=== PATIENT | female | born 1995 ===

== ENCOUNTER 2022-10-09 07:46 | Inpatient (IN) | payer OTHER ==
[~2022-10-09] VITALS: Ht 152.4 cm; Wt 3.6 kg
[2022-10-09] MEDS ORDERED: PRENATAL + DHA1 EAC1 PO (10:33)
== END 2022-10-12 14:32 | disposition home or self-care (01) | DRG 788 ==
LOC: LDR 07:46 → OB/GYN 07:46
PROVIDERS: ADMIT Specialist; ATTEND Specialist
PROC: 4A1HXCZ Monitoring of Products of Conception, Cardiac Rate, External Approach (ICD-10-PCS; 2022-10-09)
PROC: 10D00Z1 Extraction of Products of Conception, Low, Open Approach (ICD-10-PCS; principal; 2022-10-09 19:00)
DX: O62.1 Secondary uterine inertia (principal); Z3A.39 39 weeks gestation of pregnancy; Z37.0 Single live birth; Z20.822 Contact with and (suspected) exposure to COVID-19

== ENCOUNTER 2024-04-23 07:45 | Inpatient (IN) | payer OTHER ==
[~2024-04-23] VITALS: Ht 152.4 cm; Wt 101.6 kg
[~2024-04-23 07:45] MED LIST: PRENATAL + DHA1 EAC1 PO
[2024-04-23 09:43] LABS: URINE APPEARANCE Clear; URINE BILIRRUBIN Negative (NEGATIVE); URINE BLOOD Negative; URINE COLOR Yellow; URINE GLUCOSE Negative (NEGATIVE); URINE LEUKOCYTE Trace; URINE NITRATE Negative; URINE PROTEIN Negative (NEGATIVE); URINE UROBILINOGEN 0.2 E.U./dl
[2024-04-23 09:47] LABS: URINE BACTERIA 1079.7 uL (0.0-1933); URINE EPITHELIAL CELLS 45.9 uL (0.0-38.8); URINE RBC 5.4 uL (0.0-20.8); URINE WBC 25.6 uL (0.0-23.2)
[2024-04-23 10:05] LABS: INR < 0.93; PROTHROMBIN TIME 9.7 SECONDS (9.0-11.5)
[2024-04-23 10:16] LABS: HEMATOCRIT 34.8 % (36.0-45.00); MEAN CELL VOLUME 85.9 fL (80.00-100.00); MEAN CORPUSCULAR HEMOGLOBIN 29.7 pg (27.00-32.0); MEAN CORPUSCULAR HGB CONC 34.6 g/dl (32.0-36.0); PLATELET COUNT 136 K/uL (150-450); RED BLOOD COUNT 4.04 M/uL (4.00-6.00); RED CELL DISTRIBUTION WIDTH 16.4 % (11.5-14.5)
[2024-04-23 10:34] LABS: ALBUMIN 2.3 gm/dL (3.4-5.0); BILIRUBIN TOTAL 0.54 mg/dL (0.3-1.2); CALCIUM 8.5 mg/dL (8.5-10.1); CREATININE SERUM 0.4 mg/dL (0.55-1.02); GFR 187.41; GLOBULINA 4.2 G/DL (2.4-3.5); TOTAL PROTEIN 6.5 gm/dL (6.4-8.2)
[2024-04-28] MEDS ORDERED: KETOROLAC TROMETHAMINE 60 MG VIAL IM ONE (17:30)
[2024-04-28] MEDS ORDERED: MEPERIDINE HCL/PF 50 MG/ML VIAL IV SCH (17:30)
[2024-04-28] MEDS ORDERED: OXYTOCIN 10 UNITS/ML VIAL IV ONE (19:45)
[2024-04-28] MEDS ORDERED: ERYTHROMYCIN BASE 1 GM TUBE OP ONE (19:45)
[2024-04-28] MEDS ORDERED: CEFAZOLIN SODIUM 1,000 MG VIAL IV ONE (19:45)
[2024-04-28] MEDS ORDERED: PROMETHAZINE HCL 25 MG/ML AMPUL IV SCH (21:00)
[2024-04-28 21:16] LABS: ABG PH 7.264 (7.35-7.45); ABG PO2 18.2 mmHg (80-100); ABG pCO2 52.7 mmHg (35-45); BASE EXCESS -4.3 mmol/l; BICARBONATE 23.4 mmol/l (23-25)
[2024-04-28 21:39] LABS: HEMATOCRIT 37.1 % (36.0-45.00); HEMOGLOBIN 12.7 g/dL (12.0-15.00); MEAN CELL VOLUME 86.4 fL (80.00-100.00); MEAN CORPUSCULAR HEMOGLOBIN 29.5 pg (27.00-32.0); MEAN CORPUSCULAR HGB CONC 34.2 g/dl (32.0-36.0); PLATELET COUNT 148 K/uL (150-450); RED CELL DISTRIBUTION WIDTH 16.3 % (11.5-14.5)
[2024-04-29] MEDS ORDERED: OxyCODONE HCL/APAP UD (PERCOCET) PO SCH (09:00)
[2024-04-29] MEDS ORDERED: DOCUSATE CALCIUM 240 MG CAPSULE PO SCH (09:00)
[2024-04-29] MEDS ORDERED: SIMETHICONE 125 MG CAPSULE PO SCH (09:00)
[2024-04-30] MEDS ORDERED: MINERAL OIL 30 ML BLIST.PACK PO NR (14:00)
[2024-04-30] MEDS ORDERED: MAGNESIUM HYDROXIDE 30 ML BLIST.PACK PO NR (14:00)
== END 2024-05-01 12:56 | disposition home or self-care (01) | DRG 785 ==
LOC: O/R 04-28 06:45 → OB/GYN 04-28 07:45
PROVIDERS: ADMIT Specialist; ATTEND Specialist
PROC: 0UB70ZZ Excision of Bilateral Fallopian Tubes, Open Approach (ICD-10-PCS; 2024-04-28)
PROC: 4A1HXCZ Monitoring of Products of Conception, Cardiac Rate, External Approach (ICD-10-PCS; 2024-04-28)
PROC: 10D00Z1 Extraction of Products of Conception, Low, Open Approach (ICD-10-PCS; principal; 2024-04-28 09:15)
DX: O34.211 Maternal care for low transverse scar from previous cesarean delivery (principal); Z3A.39 39 weeks gestation of pregnancy; Z20.822 Contact with and (suspected) exposure to COVID-19; Z30.2 Encounter for sterilization; Z37.0 Single live birth